=== PATIENT | female | born 1965 | race Caucasian/White ===

== ENCOUNTER → 2017-05-06 | Outpatient (CLI) | payer BC ==
[2017-05-06 08:07] LABS: ALT 38 U/L (9-52); AST 21 U/L (14-36); Alkaline Phosphatase 78 U/L (38-126); Anion Gap 10 mmol/L; Blood Urea Nitrogen 14 mg/dL (7-17); Calcium 9.3 mg/dL (8.4-10.2); Carbon Dioxide 25 mmol/L (22-30); Chloride 108 mmol/L (98-107); Cholesterol 242 mg/dL (<200); Glucose 81 mg/dL (74-99); HDL Cholesterol 63 mg/dL (40-60); Non-African American GFR(MDRD) >60 (>60 ml/min/1.73 sqM); Potassium 4.4 mmol/L (3.5-5.1); Sodium 143 mmol/L (137-145); Total Bilirubin 0.4 mg/dL (0.2-1.3); Total Protein 6.7 g/dL (6.3-8.2); Triglycerides 96 mg/dL (<150)
[2017-05-06 08:22] LABS: Basophils % (A) 0 %; CH 30.8; CHCM 33.6; Eosinophils # (A) 0.1 k/uL (0-0.7); Eosinophils % (A) 2 %; HCT 41.9 % (34.0-46.0); HDW 2.45; HGB 14.1 gm/dL (11.4-16.0); Luc % (Auto) 2; Lymphocytes # (A) 2.4 k/uL (1.0-4.8); Lymphocytes % (A) 38 %; MCH 31.1 pg (25.0-35.0); MCHC 33.7 g/dL (31.0-37.0); MCV 92.1 fL (80.0-100.0); Mean Platelet Volume 7.9; Monocytes # (A) 0.4 k/uL (0-1.0); Monocytes % (A) 6 %; Neutrophils # (A) 3.3 k/uL (1.3-7.7); Neutrophils % (A) 52 %; RBC 4.55 m/uL (3.80-5.40); RDW 13.5 % (11.5-15.5); WBC 6.3 k/uL (3.8-10.6); WBC (Perox) 6.24
== END | disposition home or self-care (01) ==
LOC: LABWHC1 07:05
PROVIDERS: ATTEND Physician Assistant
DX: E03.9 Hypothyroidism, unspecified (principal); R53.83 Other fatigue; E78.2 Mixed hyperlipidemia; Z01.419 Encounter for gynecological examination (general) (routine) without abnormal findings
CPT/HCPCS: 36415; 80053; 80061; 82306; 84439; 84443; 85025

== ENCOUNTER → 2017-05-17 | Outpatient (CLI) | payer BC ==
--- NOTE | 2017-05-20 13:33 | MM ---
Reason for exam: screening (asymptomatic). Last mammogram was performed 1 year and 1 month ago. History: Patient is postmenopausal. Family history of breast cancer in aunt at age 40, breast cancer in mother at age 60, and breast cancer in grandmother at age 50. Excisional biopsy of the right breast, 2002. Cyst aspiration of both breasts. Took hormonal contraceptives for 5 years beginning at age 19. Physical Findings: A clinical breast exam by your physician is recommended on an annual basis and results should be correlated with mammographic findings. MG 3D Screening Mammo W/Cad Bilateral CC and MLO view(s) were taken. Prior study comparison: April 13, 2016, bilateral MG 3d screening mammo w/cad. May 18, 2013, bilateral digital screening mammo w/CAD. The breast tissue is heterogeneously dense. This may lower the sensitivity of mammography. No suspicious findings. No significant changes when compared with prior studies. ASSESSMENT: Negative, BI-RAD 1 RECOMMENDATION: Routine screening mammogram of both breasts in 1 year.
== END | disposition home or self-care (01) ==
LOC: RADMAMWWP 06:57
PROVIDERS: ATTEND Family Medicine
DX: Z12.31 Encounter for screening mammogram for malignant neoplasm of breast (principal)
CPT/HCPCS: 77063; G0202

== ENCOUNTER → 2018-05-21 | Outpatient (CLI) | payer OTHER ==
--- NOTE | 2018-05-27 16:43 | MM ---
Reason for exam: screening (asymptomatic). Last mammogram was performed 1 year ago. History: Patient is postmenopausal. Family history of breast cancer in aunt at age 40, breast cancer in mother at age 60, and breast cancer in maternal grandmother at age 50. Excisional biopsy of the right breast, 2002. Cyst aspiration of both breasts. Took hormonal contraceptives for 5 years beginning at age 19. MG 3D Screening Mammo W/Cad Bilateral CC and MLO view(s) were taken. Prior study comparison: May 17, 2017, bilateral MG 3d screening mammo w/cad. April 13, 2016, bilateral MG 3d screening mammo w/cad. May 18, 2013, bilateral digital screening mammo w/CAD. The breast tissue is heterogeneously dense. This may lower the sensitivity of mammography. No suspicious abnormality. Post excisional biopsy changes on the right breast. No significant new finding from prior exam. ASSESSMENT: Benign, BI-RAD 2 RECOMMENDATION: Routine screening mammogram of both breasts in 1 year.
== END | disposition home or self-care (01) ==
LOC: RADMAMWWP 16:53
PROVIDERS: ATTEND Family Medicine
DX: Z12.31 Encounter for screening mammogram for malignant neoplasm of breast (principal)
CPT/HCPCS: 77063; 77067

== ENCOUNTER → 2019-04-24 | Outpatient (CLI) | payer OTHER ==
[2019-04-24 07:20] LABS: HCT 39.9 % (34.0-46.0); HGB 13.1 gm/dL (11.4-16.0); MCH 29.4 pg (25.0-35.0); MCHC 32.9 g/dL (31.0-37.0); MCV 89.3 fL (80.0-100.0); Mean Platelet Volume 8.2; Platelet Count 226 k/uL (150-450); RBC 4.47 m/uL (3.80-5.40); RDW 13.9 % (11.5-15.5); WBC 5.8 k/uL (3.8-10.6)
[2019-04-24 13:44] LABS: ACTH 23.1 pg/mL (0.00-45.99)
== END | disposition home or self-care (01) ==
LOC: LABWHC1 06:59
PROVIDERS: ATTEND Internal Medicine Endocrinology, Diabetes & Metabolism
DX: E03.8 Other specified hypothyroidism (principal); R53.83 Other fatigue
CPT/HCPCS: 36415; 82024; 82533; 82607; 84146; 84443; 85027

== ENCOUNTER → 2019-07-30 | Outpatient (CLI) | payer OTHER ==
[2019-07-30 09:28] LABS: Basophils % (A) 0 %; Eosinophils # (A) 0.1 k/uL (0-0.7); Eosinophils % (A) 1 %; HCT 42.2 % (34.0-46.0); Lymphocytes # (A) 2.1 k/uL (1.0-4.8); Lymphocytes % (A) 30 %; MCH 29.9 pg (25.0-35.0); MCHC 33.1 g/dL (31.0-37.0); MCV 90.3 fL (80.0-100.0); Mean Platelet Volume 6.7; Monocytes # (A) 0.4 k/uL (0-1.0); Monocytes % (A) 5 %; Neutrophils # (A) 4.5 k/uL (1.3-7.7); Neutrophils % (A) 63 %; Platelet Count 249 k/uL (150-450); RBC 4.67 m/uL (3.80-5.40); RDW 12.7 % (11.5-15.5); WBC 7.2 k/uL (3.8-10.6)
[2019-07-30 10:40] LABS: Erythrocyte Sedimentation Rate 7 mm/hr (0-20)
[2019-07-30 16:10] LABS: Rheumatoid Factor 6 IU/mL (0-15)
[2019-07-30 16:19] LABS: Albumin 4.5 g/dL (3.80-4.90); Albumin/Globulin Ratio 2.25 (1.60-3.17); Anion Gap 8.5 mmol/L (4.00-12.00); BUN/Creat Ratio 14.29 Ratio (12.00-20.00); C Reactive Protein 0.5 mg/dL (0.0-0.8); Calcium 9.6 mg/dL (8.7-10.3); Carbon Dioxide 26.5 mmol/L (21.6-31.8); Chol/HDL Ratio 4.75; Potassium 4.1 mmol/L (3.5-5.5); Total Bilirubin 0.5 mg/dL (0.3-1.2); Total Protein 6.5 g/dL (6.2-8.2)
[2019-07-30 16:45] LABS: Hepatitis B Surface Antigen Non-Reactive (Non-Reactive); Hepatitis C IgG Antibody Non-Reactive (Non-Reactive)
[2019-07-30 16:50] LABS: Cyclic Citrull Pep IgG Unit <0.5 U/mL; Cyclic Citrullinated Pep IgG NEGATIVE (NEGATIVE)
[2019-07-30 17:34] LABS: Hemoglobin A1C 5.7 % (4.0-6.0)
[2019-07-30 18:00] LABS: HIV 1 AB Non-Reactive (Non-Reactive); HIV 2 AB Non-Reactive (Non-Reactive); HIV AB P24 Non-Reactive (Non-Reactive); HIV P24 AG Non-Reactive (Non-Reactive)
== END | disposition home or self-care (01) ==
LOC: LABWHC1 08:45
PROVIDERS: ATTEND Family Medicine
DX: R20.2 Paresthesia of skin (principal)
CPT/HCPCS: 36415; 80053; 80061; 83036; 85025; 85652; 86038; 86140; 86200; 86431; 86780; 86803; 87340; 87390

== ENCOUNTER → 2019-09-08 | Outpatient (CLI) | payer OTHER ==
--- NOTE | 2019-09-08 22:34 | US ---
EXAMINATION TYPE: US carotid duplex BILAT DATE OF EXAM: 09/08/2019 COMPARISON: NONE CLINICAL HISTORY: I10 hypertension E78.5 KmtmixiganeocwH10.2. Facial numbness EXAM MEASUREMENTS: RIGHT: Peak Systolic Velocity (PSV) cm/sec ----- Right CCA: 76.5 ----- Right ICA: 105.6 ----- Right ECA: 97.2 ICA/CCA ratio: 1.4 RIGHT: End Diastole cm/sec ----- Right CCA: 23.7 ----- Right ICA: 51.2 ----- Right ECA: 19.7 LEFT: Peak Systolic Velocity (PSV) cm/sec ----- Left CCA: 74.3 ----- Left ICA: 97.4 ----- Left ECA: 121.7 ICA/CCA ratio: 1.3 LEFT: End Diastole cm/sec ----- Left CCA: 27.0 ----- Left ICA: 44.6 ----- Left ECA: 24.2 VERTEBRALS (direction of flow): Right Vertebral: Antegrade Left Vertebral: Antegrade Rhythm: Normal Grayscale images show no significant focal plaque at carotid bulb level bilaterally. IMPRESSION: No hemodynamically significant stenosis is seen in either internal carotid artery. Criteria for Assigning % of Stenosis / Diameter reduction (Estimation based on the indirect measurements of the internal carotid artery velocities (ICA PSV). 1. Normal (no stenosis)=ICA PSV < 125 cm/s: ratio < 2.0: ICA EDV<40 cm/s. 2. Less than 50% stenosis=ICA PSV < 125 cm/s: ratio < 2.0: ICA EDV<40 cm/s. 3. 50 to 69% stenosis=ICA PSV of 125 to 230 cm/s: ration 2.0 ? 4.0: ICA EDV 40-100 cm/s. 4. Greater than 70% stenosis to near occlusion= ICA PSV > 230 cm/s: ratio > 4.0: ICA EDV > 100 cm/s. 5. Near occlusion= ICA PSV velocities may be low or undetectable: variable ratio and ICA EDV. 6. Total occlusion=unable to detect flow.
== END ==
LOC: RADUSWWP 16:01
PROVIDERS: ATTEND Family Medicine
DX: I10 Essential (primary) hypertension (principal); E78.5 Hyperlipidemia, unspecified; R20.2 Paresthesia of skin
CPT/HCPCS: 93880

== ENCOUNTER → 2019-10-28 | Outpatient (CLI) | payer OTHER ==
[2019-10-28 16:15] LABS: Chol/HDL Ratio 3.03
== END ==
LOC: LABWHC1 07:11
PROVIDERS: ATTEND Family Medicine
DX: E78.2 Mixed hyperlipidemia (principal); E03.8 Other specified hypothyroidism
CPT/HCPCS: 36415; 80061; 84443

== ENCOUNTER 2020-04-12 19:56 | Emergency (ER) | payer OTHER ==
[2020-04-12] MEDS ORDERED: methylPREDNISolone SOD SUCCI 125 MG/2 ML VIAL IV STA (20:11)
[2020-04-12] MEDS ORDERED: FAMOTIDINE 20 MG/2 ML VIAL IV STA (20:11)
[2020-04-12] MEDS ORDERED: diphenhydrAMINE 50 MG/ML 1 ML VIAL IVP STA (20:11)
--- NOTE | 2020-04-12 20:14 | ED ---
General Adult HPI - General Chief complaint: Allergic Reaction Stated complaint: Multiple wasp stings/ swelling Time Seen by Provider: 04/12/20 20:08 Source: patient, RN notes reviewed Mode of arrival: ambulatory Limitations: no limitations - History of Present Illness Initial comments: 54-year-old female with a past medical history hyperlipidemia, hypertension, thyroid disorder presents to the emergency department for a chief complaint of wasp sting. Patient was stung twice in the face by a wasp. Patient states one was by her eyebrow and one was by her cheek. Patient states her face is numb. However she denies any sling of the lips tongue or throat. Denies any shortness of breath or chest pain. Patient has never had an ALLERGIC reaction from a bee sting before. This happened about one hour prior to arrival. She did take one 25 mg Benadryl prior to arrival as well. - Related Data Previous Rx's Medication Instructions Recorded predniSONE 50 mg PO DAILY #3 tablet 04/12/20 Allergies Allergy/AdvReac Type Severity Reaction Status Date / Time Sulfa (Sulfonamide Allergy Rash/Hives Verified 04/12/20 20:03 Antibiotics) Review of Systems ROS Statement: Those systems with pertinent positive or pertinent negative responses have been documented in the HPI. ROS Other: All systems not noted in ROS Statement are negative. Past Medical History Past Medical History: Hyperlipidemia, Hypertension, Thyroid Disorder History of Any Multi-Drug Resistant Organisms: None Reported Past Surgical History: Cholecystectomy, Tubal Ligation, Uterine Ablation Past Psychological History: No Psychological Hx Reported Smoking Status: Never smoker Past Alcohol Use History: Rare Past Drug Use History: None Reported General Exam Limitations: no limitations General appearance: alert, in no apparent distress Head exam: Present: atraumatic, normocephalic, normal inspection Eye exam: Present: normal appearance, PERRL, EOMI. Absent: scleral icterus, conjunctival injection, periorbital swelling ENT exam: Present: normal exam, normal oropharynx (No swelling of the lips tongue or throat), mucous membranes moist, TM's normal bilaterally, normal external ear exam Neck exam: Present: normal inspection, full ROM. Absent: tenderness, meningismu s, lymphadenopathy Respiratory exam: Present: normal lung sounds bilaterally. Absent: respiratory distress, wheezes, rales, rhonchi, stridor Cardiovascular Exam: Present: regular rate, normal rhythm, normal heart sounds. Absent: systolic murmur, diastolic murmur, rubs, gallop, clicks GI/Abdominal exam: Present: soft, normal bowel sounds. Absent: distended, tenderness, guarding, rebound, rigid Neurological exam: Present: alert Skin exam: Present: erythema Course Vital Signs 04/12/20 04/12/20 19:59 20:42 Temperature 98.1 F Pulse Rate 88 Respiratory 16 20 Rate Blood Pressure 139/75 O2 Sat by Pulse 100 Oximetry Medical Decision Making - Medical Decision Making Patient was given IV medications. She is much better. No slurring of the lips tongue or throat. No drooling hoarseness or stridor. Patient requesting discharge. Will be discharged home with a few days of steroids. It discussed return parameters in depth with patient. I discussed this case with attending Dr. Gaitan who agrees with this assessment and treatment plan. Disposition Clinical Impression: Wasp sting Disposition: HOME SELF-CARE Condition: Good Instructions (If sedation given, give patient instructions): Insect Bite or Sting (ED) Additional Instructions: Take Benadryl [id number] as needed. Take steroid as directed. Follow-up with primary care in 1-2 days. Give any worsening symptoms return here to the emergency room. Prescriptions: predniSONE 50 mg PO DAILY #3 tablet Is patient prescribed a controlled substance at d/c from ED?: No Referrals: Richie Fuentes MD [Primary Care Provider] - 1-2 days Time of Disposition: 21:23
[2020-04-12 21:58] VITALS: BP 118/78; PULSE 64; RESP 15; TEMP 97.1
== END 2020-04-12 21:56 | disposition home or self-care (01) ==
LOC: EC 19:56
DX: T63.441A Toxic effect of venom of bees, accidental (unintentional), initial encounter (principal); Z88.2 Allergy status to sulfonamides
CPT/HCPCS: 99283; 96374; 96375 ×2; J1200; J2930

== ENCOUNTER → 2020-05-05 | Outpatient (CLI) | payer OTHER | END | disposition home or self-care (01) | LOC: LABWHC1 07:49 | PROVIDERS: ATTEND Internal Medicine Endocrinology, Diabetes & Metabolism | DX: E03.8 Other specified hypothyroidism (principal) | CPT/HCPCS: 36415; 84443 ==

== ENCOUNTER → 2020-11-10 | Outpatient (CLI) | payer OTHER ==
--- NOTE | 2020-11-11 14:23 | MM ---
Reason for exam: screening (asymptomatic). Last mammogram was performed 2 years and 6 months ago. History: Patient is postmenopausal. Family history of breast cancer in aunt at age 40, breast cancer in mother at age 60, and breast cancer in maternal grandmother at age 50. Excisional biopsy of the right breast, 2002. Cyst aspiration of both breasts. Took hormonal contraceptives for 5 years beginning at age 19. Physical Findings: A clinical breast exam by your physician is recommended on an annual basis and results should be correlated with mammographic findings. MG 3D Screening Mammo W/Cad Bilateral CC and MLO view(s) were taken. Prior study comparison: May 21, 2018, bilateral MG 3d screening mammo w/cad. May 17, 2017, bilateral MG 3d screening mammo w/cad. The breast tissue is heterogeneously dense. This may lower the sensitivity of mammography. Stable benign calcifications. There is no discrete abnormality. No significant changes when compared with prior studies. ASSESSMENT: Benign, BI-RAD 2 RECOMMENDATION: Routine screening mammogram of both breasts in 1 year.
== END | disposition home or self-care (01) ==
LOC: RADMAMWWP 07:18
PROVIDERS: ATTEND Family Medicine
DX: Z12.31 Encounter for screening mammogram for malignant neoplasm of breast (principal)
CPT/HCPCS: 77063; 77067

== ENCOUNTER → 2020-11-10 | Outpatient (CLI) | payer OTHER | END | disposition home or self-care (01) | LOC: LABWHC1 07:48 | PROVIDERS: ATTEND Internal Medicine Endocrinology, Diabetes & Metabolism | DX: E03.8 Other specified hypothyroidism (principal) | CPT/HCPCS: 36415; 84443 ==

== ENCOUNTER → 2021-05-29 | Outpatient (CLI) | payer OTHER | END | disposition home or self-care (01) | LOC: LABWHC1 07:22 | PROVIDERS: ATTEND Internal Medicine Endocrinology, Diabetes & Metabolism | DX: E03.8 Other specified hypothyroidism (principal) | CPT/HCPCS: 36415; 84443 ==

== ENCOUNTER → 2021-06-06 | Outpatient (CLI) | payer OTHER ==
--- NOTE | 2021-06-06 07:51 | XR ---
EXAMINATION TYPE: XR hand complete LT DATE OF EXAM: 06/06/2021 COMPARISON: NONE HISTORY: Pain TECHNIQUE: Three views are submitted. FINDINGS: The osseous structures are intact. Diffuse osteopenia with narrowing of the DIP joint of all digits. IMPRESSION: 1. Diffuse osteopenia with mild arthropathy.
[2021-06-06 11:16] LABS: Basophils # (A) 0.04 X 10*3/uL (0.00-0.10); Basophils % (A) 0.6 %; Eosinophils # (A) 0.12 X 10*3/uL (0.04-0.35); Eosinophils % (A) 1.8 %; HCT 40.5 % (37.2-46.3); HGB 13.3 g/dL (12.0-15.0); Lymphocytes # (A) 2.16 X 10*3/uL (0.90-5.00); MCH 30.6 pg (27.0-32.0); MCHC 32.8 g/dL (32.0-37.0); MCV 93.3 fL (80.0-97.0); Mean Platelet Volume 11.1 fL (9.5-12.2); Monocytes # (A) 0.42 X 10*3/uL (0.20-1.00); Monocytes % (A) 6.4 %; Neutrophils # (A) 3.78 X 10*3/uL (1.80-7.70); Neutrophils % (A) 57.9 %; Platelet Count 256 X 10*3/uL (140-440); RBC 4.34 X 10*6/uL (4.10-5.20); RDW 12.4 % (11.5-14.5); WBC 6.54 X 10*3/uL (4.50-10.00)
[2021-06-06 20:36] LABS: African American GFR (CKD) 94.9 (60.0-200.0); Albumin 4.3 g/dL (3.80-4.90); Albumin/Globulin Ratio 2.05 (1.60-3.17); Anion Gap 13.3 mmol/L (4.00-12.00); BUN/Creat Ratio 13.75 Ratio (12.00-20.00); Calcium 9.2 mg/dL (8.7-10.3); Carbon Dioxide 22.7 mmol/L (21.6-31.8); Chol/HDL Ratio 3.02; Globulin 2.1 g/dL (1.6-3.3); LDL Cholesterol,Calculated 88.2 mg/dL (0.0-131.0); Non-African American GFR(CKD) 81.8 (60.0-200.0); Total Bilirubin 0.3 mg/dL (0.2-1.2); Total Protein 6.4 g/dL (6.2-8.2); VLDL Calculation 22.8 mg/dL (5.00-40.00)
== END | disposition home or self-care (01) ==
LOC: LABWHC1 07:06
PROVIDERS: ATTEND Family Medicine
DX: E78.00 Pure hypercholesterolemia, unspecified (principal); E55.9 Vitamin D deficiency, unspecified; E03.9 Hypothyroidism, unspecified; I10 Essential (primary) hypertension; M79.89 Other specified soft tissue disorders; R22.32 Localized swelling, mass and lump, left upper limb; M85.80 Other specified disorders of bone density and structure, unspecified site; Z68.29 Body mass index [BMI] 29.0-29.9, adult
CPT/HCPCS: 36415; 80053; 80061; 82306; 84439; 84443; 85025; 86803

== ENCOUNTER → 2021-06-28 | Outpatient (CLI) | payer OTHER ==
--- NOTE | 2021-06-28 11:33 | BD ---
EXAMINATION TYPE: Axial Bone Density DATE OF EXAM: 06/28/2021 COMPARISON: NONE CLINICAL HISTORY: Height: 5 FT 5 1/2 IN Weight: 182 FRAX RISK QUESTIONS: Alcohol (3 or more units per day): NO Family History (Parent hip fracture): NO Glucocorticoids (More than 3mos): NO (Ex: prednisone, prednisolone, methylprednisolone, dexamethasone, and hydrocortisone). History of Fracture in Adulthood: NO Secondary Osteoporosis: 1. Type 1 Diabetes: NO 2. Hyperthyroidism: NO 3. Menopause before 45: YES 4. Malnutrition: NO 5. Chronic liver disease: NO Rheumatoid Arthritis: NO Current Tobacco Use: NO RISK FACTORS HISTORY OF: Surgery to Spine/Hip(right/left)/Wrist (right/left): NO Family History of Osteoporosis: NO Active: NO Diet low in dairy products/other sources of calcium: NO Postmenopausal woman: BEFORE AGE 45 Take estrogen and/or progesterone medications: NO Lost more than 2 inches in height since high school: NO MEDICATIONS: Thyroid Medications: YES Which medication: SYNTHROID How Long: APPROX 30 YEARS Additional Medications: SYNTHROID, LISINOPRIL, ATORVASTATAN Additional History: EXAM MEASUREMENTS: Bone mineral densitometry was performed using the [employer] System. Bone mineral density as measured about the Lumbar spine is: ----- L1-L4(G/cm2): 1.245 T Score Values are as follows: ----- L2: 0.3 ----- L3: 0.8 ----- L4: 0.6 ----- L1-L4: 0.5 Bone mineral density has: DECREASED -10.1 % since study of: 2012 Bone mineral density about the R hip (g/cm2): 0.776 Bone mineral density about the L hip (g/cm2): 0.830 T Score values are as follows: -----R Neck: -1.9 -----L Neck: -1.5 -----R Total: -1.6 -----L Total: -1.3 Bone mineral density has: DECREASED -3.6 % since study of: 2012 IMPRESSION: Osteopenia (T Score between -2.5 and -1). There is slightly increased risk of fracture and the patient may be considered for treatment. Re-Screen 2-5 years. NOTE: T-SCORE=SD OF THE YOUNG ADULT MEAN.
== END | disposition home or self-care (01) ==
LOC: RADBDWWP 09:52
PROVIDERS: ATTEND Family Medicine
DX: M85.89 Other specified disorders of bone density and structure, multiple sites (principal)
CPT/HCPCS: 77080

== ENCOUNTER → 2021-06-29 | Outpatient (CLI) | payer OTHER ==
--- NOTE | 2021-06-30 07:08 | US ---
EXAMINATION TYPE: US extremity nonvasc mass LT DATE OF EXAM: 06/29/2021 COMPARISON: NONE CLINICAL HISTORY: R22.42 Localized swelling, mass and lump, left low. palpable area under left buttoc ks for years, no pain, thinks it might be getting smaller 2.0 x 2.3 x 1.6cm slighty hyperechoic lesion that is most likely a lipoma, no vascularity seen IMPRESSION: Nonspecific 2.3 cm mass over the area of palpable abnormality possibly representing a li iker. Correlate with MRI
== END | disposition home or self-care (01) ==
LOC: RADUSWWP 16:11
PROVIDERS: ATTEND Family Medicine
DX: R22.42 Localized swelling, mass and lump, left lower limb (principal)

== ENCOUNTER → 2021-10-02 | Outpatient (CLI) | payer OTHER ==
[2021-10-02 22:15] LABS: ALT 35 U/L (8-44); AST 22 U/L (13-35); African American GFR (CKD) 111.5 (60.0-200.0); Albumin 4.6 g/dL (3.8-4.9); Albumin/Globulin Ratio 2.09 (1.60-3.17); Alkaline Phosphatase 86 U/L (41-126); Blood Urea Nitrogen 14.7 mg/dL (9.0-27.0); Calcium 9.6 mg/dL (8.7-10.3); Carbon Dioxide 22.3 mmol/L (20.0-27.5); Chloride 104 mmol/L (96-109); Globulin 2.2 g/dL (1.6-3.3); Glucose 93 mg/dL (70-110); Non-African American GFR(CKD) 96.2 (60.0-200.0); Potassium 4.5 mmol/L (3.5-5.5); Sodium 141 mmol/L (135-145); Total Bilirubin <0.20 mg/dL (0.30-1.20); Total Protein 6.8 g/dL (6.2-8.2)
== END | disposition home or self-care (01) ==
LOC: LABWHC1 13:14
PROVIDERS: ATTEND Nurse Practitioner Family
DX: R79.9 Abnormal finding of blood chemistry, unspecified (principal); M85.9 Disorder of bone density and structure, unspecified
CPT/HCPCS: 36415; 80053

== ENCOUNTER → 2022-03-20 | Outpatient (CLI) | payer OTHER | END | disposition home or self-care (01) | LOC: LABWHC1 07:26 | PROVIDERS: ATTEND Internal Medicine Endocrinology, Diabetes & Metabolism | DX: E03.8 Other specified hypothyroidism (principal) | CPT/HCPCS: 36415; 84443 ==

== ENCOUNTER → 2022-09-17 | Outpatient (CLI) | payer OTHER ==
[2022-09-17 10:52] LABS: Basophils # (A) 0.03 X 10*3/uL (0.00-0.10); Basophils % (A) 0.4 %; Eosinophils # (A) 0.14 X 10*3/uL (0.04-0.35); HCT 41.5 % (37.2-46.3); HGB 13.9 g/dL (12.0-15.0); Immature Grans, Automated 0.1 %; Lymphocytes # (A) 2.14 X 10*3/uL (0.90-5.00); Lymphocytes % (A) 30.9 %; MCH 30.2 pg (27.0-32.0); MCHC 33.5 g/dL (32.0-37.0); Mean Platelet Volume 10.6 fL (9.5-12.2); Monocytes # (A) 0.47 X 10*3/uL (0.20-1.00); Monocytes % (A) 6.8 %; NRBC Per 100 WBC 0 /100 WBCS (0.0-0.0); Neutrophils # (A) 4.14 X 10*3/uL (1.80-7.70); Neutrophils % (A) 59.8 %; Platelet Count 246 X 10*3/uL (140-440); RBC 4.61 X 10*6/uL (4.10-5.20); RDW 12.4 % (11.5-14.5); WBC 6.93 X 10*3/uL (4.50-10.00)
[2022-09-17 11:21] LABS: ALT 32 U/L (8-44); AST 19 U/L (13-35); African American GFR (CKD) 94.2 (60.0-200.0); Albumin 4.5 g/dL (3.8-4.9); Albumin/Globulin Ratio 1.88 (1.60-3.17); Alkaline Phosphatase 83 U/L (41-126); Blood Urea Nitrogen 11.6 mg/dL (9.0-27.0); Calcium 9.6 mg/dL (8.7-10.3); Carbon Dioxide 24.9 mmol/L (20.0-27.5); Chloride 104 mmol/L (96-109); Chol/HDL Ratio 3.67 Ratio; Globulin 2.4 g/dL (1.6-3.3); Glucose 112 mg/dL (70-110); LDL Cholesterol,Calculated 110.6 mg/dL (0.0-131.0); Non-African American GFR(CKD) 81.3 (60.0-200.0); Potassium 4.3 mmol/L (3.5-5.5); Sodium 141 mmol/L (135-145); Total Protein 6.9 g/dL (6.2-8.2)
== END | disposition home or self-care (01) ==
LOC: LABWHC1 07:13
PROVIDERS: ATTEND Internal Medicine Endocrinology, Diabetes & Metabolism
DX: I10 Essential (primary) hypertension (principal); E78.00 Pure hypercholesterolemia, unspecified; E66.09 Other obesity due to excess calories; E03.8 Other specified hypothyroidism; Z68.31 Body mass index [BMI] 31.0-31.9, adult
CPT/HCPCS: 36415; 80053; 80061; 84439; 84443; 85025

== ENCOUNTER → 2022-10-18 | Outpatient (CLI) | payer OTHER ==
--- NOTE | 2022-10-18 18:53 | MM ---
Reason for Exam: Screening (asymptomatic). Last mammogram was performed 2 year(s) and 0 month(s) ago. Patient History: Menarche at age 16. First Full-Term at age 25. Postmenopausal. Hormonal Contraceptives for 5 years from age 19 until age 24. Bilateral Cyst Aspiration. 2002, Excisional Biopsy on the Right side. Maternal grandmother had breast cancer, age 50. Maternal aunt had breast cancer, age 40. Mother had breast cancer, age 60. Risk Values: Nancy 5 year model risk: 2.8%. NCI Lifetime model risk: 15.6%. Prior Study Comparison: 05/17/2017 Bilateral Screening Mammogram, [facility]. 05/21/2018 Bilateral Screening Mammogram, [facility]. 11/10/2020 Bilateral Screening Mammogram, [facility]. Tissue Density: The breast tissue is heterogeneously dense. This may lower the sensitivity of mammography. Findings: Analyzed By CAD. Increasing grouped microcalcifications upper outer quadrant left breast posterior depth. 9 mm circumscribed mass may have been present in 2018 but much smaller approximately 8:00 position periareolar left breast. This may represent a cyst but further ultrasound evaluation is recommended. Additional couple areas of asymmetric density outer left cc view middle depth and centrally posteriorly left MLO view may represent superimposition shadow but further evaluation is recommended. No significant change seen on the right. Overall Assessment: Incomplete: need additional imaging evaluation, BI-RAD 0 Management: Special View Mammogram of the left breast. Diagnostic Breast Ultrasound of the left breast. 1. Additional views including spot 3-D CC (middle depth asymmetry), spot 3-D MLO (central posterior depth asymmetry), and 3-D ML views. 2. Also, mag CC and mag ML views for the posterior upper-outer quadrant microcalcifications. 3. Whole left breast ultrasound. Particular attention for an 8:00 periareolar 9 mm mass/cyst. [facility] will attempt to contact patient to return for supplemental views and ultrasound if indicated. Electronically signed and approved by: Luli Reyes M.D. Radiologist
== END | disposition home or self-care (01) ==
LOC: RADMAMWWP 06:52
PROVIDERS: ATTEND Family Medicine
DX: Z12.31 Encounter for screening mammogram for malignant neoplasm of breast (principal); Z78.0 Asymptomatic menopausal state; Z80.3 Family history of malignant neoplasm of breast; Z98.890 Other specified postprocedural states
CPT/HCPCS: 77067

== ENCOUNTER → 2022-10-25 | Outpatient (CLI) | payer OTHER ==
--- NOTE | 2022-10-25 15:33 | MM ---
Reason for Exam: Additional evaluation requested from abnormal screening. Last screening mammogram was performed less than 1 month ago. Patient History: Menarche at age 16. First Full-Term at age 25. Postmenopausal. Patient has history of breast feeding. Hormonal Contraceptives for 5 years from age 19 until age 24. Bilateral Cyst Aspiration. 2002, Excisional Biopsy on the Right side. Maternal grandmother had breast cancer, age 50. Maternal aunt had breast cancer, age 40. Mother had breast cancer, age 60. Risk Values: Nancy 5 year model risk: 2.8%. NCI Lifetime model risk: 15.6%. Prior Study Comparison: 04/13/2016 Bilateral Screening Mammogram, [facility]. 05/17/2017 Bilateral Screening Mammogram, [facility]. 05/21/2018 Bilateral Screening Mammogram, [facility]. 11/10/2020 Bilateral Screening Mammogram, [facility]. 10/18/2022 Bilateral MG screening mammo w CAD, [facility]. Tissue Density: Left: The breast tissue is heterogeneously dense. This may lower the sensitivity of mammography. Findings: Analyzed By CAD. Persistent 9 mm circumscribed isodense nodularity anterior lower quadrant for which ultrasound is recommended. The middle depth nodularity outer aspect on the CC view does not persist. Suspicious finding heterogeneous calcifications persist upper outer quadrant at a posterior depth. Tissue sampling recommended. Overall Assessment: Incomplete: need additional imaging evaluation, BI-RAD 0 Management: Diagnostic Breast Ultrasound of the left breast. Electronically signed and approved by: Luli Reyes M.D. Radiologist
--- NOTE | 2022-10-25 15:36 | USB ---
Patient History: Menarche at age 16. First Full-Term at age 25. Postmenopausal. Patient has history of breast feeding. Hormonal Contraceptives for 5 years from age 19 until age 24. Bilateral Cyst Aspiration. 2002, Excisional Biopsy on the Right side. Maternal grandmother had breast cancer, age 50. Maternal aunt had breast cancer, age 40. Mother had breast cancer, age 60. Risk Values: Nancy 5 year model risk: 2.8%. NCI Lifetime model risk: 15.6%. Prior Study Comparison: 05/21/2018 Bilateral Screening Mammogram, [facility]. 11/10/2020 Bilateral Screening Mammogram, [facility]. 10/18/2022 Bilateral MG screening mammo w CAD, [facility]. Findings: The whole breast of the left breast, the axilla of the left breast and the retroareolar of the left breast were scanned. Left 900 2CFN 9 x 6 x 9mm oval cyst.A complete US of all four quadrants of the breast , axilla, and retro-areolar region were reviewed. At the 9:00 position, 2 cm from the nipple, there is a benign 9 mm cyst corresponding to the mammographic nodule. The At the 4:00 position, 5 cm from the nipple, there is a somewhat vertically oriented anechoic area measuring 4 x 3 x 3 mm, likely a benign cyst. Short-term follow-up given the apparent vertical orientation. No other solid or cystic lesion or axillary lymphadenopathy is seen. Overall Assessment: Suspicious, BI-RAD 4 Management: Stereotactic Core Biopsy of the left breast. For suspicious microcalcifications posterior upper quadrant. Results were given to the patient verbally at the time of exam. Electronically signed and approved by: Luli Reyes M.D. Radiologist
== END | disposition home or self-care (01) ==
LOC: RADMAMWWP 13:32
PROVIDERS: ATTEND Family Medicine
DX: R92.8 Other abnormal and inconclusive findings on diagnostic imaging of breast (principal); Z78.0 Asymptomatic menopausal state; Z80.3 Family history of malignant neoplasm of breast; Z98.890 Other specified postprocedural states
CPT/HCPCS: 77065

== ENCOUNTER 2022-12-31 06:14 | Day surgery (SDC) | payer OTHER ==
[~2022-12-31 06:14] MED LIST: ACETAMINOPHEN TAB 500 MG TAB PO PRN; HEPARIN SODIUM,PORCINE/PF 5,000 UNIT/0.5 ML SYRINGE SQ PRN; Pre Op ABX Message 1 EACH MISC MISCELLANE ONE
[2022-12-31] MEDS ORDERED: ONDANSETRON 4 MG/2 ML VIAL IVP ONE ×2 (06:57→12:37)
[2022-12-31] MEDS ORDERED: LACTATED RINGERS 1,000 ML IV SCH (06:57)
[2022-12-31] MEDS ORDERED: DEXAMETHASONE SOD PHOSPHATE 4 MG/ML 1 ML VIAL IV ONE (06:57)
[2022-12-31] MEDS ORDERED: LIDOCAINE 1% (10MG/ML) FOR IV START INTRADERMA PRN (06:57)
[2022-12-31] MEDS ORDERED: SCOPOLAMINE 1 MG/72 HR PATCH TRANSDERM ONE (06:57)
[2022-12-31] MEDS ORDERED: ALPRAZolam 0.5 MG TAB PO PRN (07:00)
[2022-12-31] MEDS ORDERED: METOCLOPRAMIDE 5 MG/ML 2 ML VIAL IVP PRN (07:00)
[2022-12-31] MEDS ORDERED: ALPRAZolam 0.5 MG TAB PO ONE (07:14)
--- NOTE | 2022-12-31 07:48 | P.GSHP ---
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 Patient had a 12 x 8 mm area of density with calcifications that was targeted. Second area seen on ultrasound was biopsied and was benign. Patient has a strong family history of breast cancer in a mother, maternal aunt, maternal uncle, maternal grandmother. I spoke with oncology this morning. No actionable mutation identified on recent testing. Here for lumpectomy Past Medical History Past Medical History: Cancer, Hyperlipidemia, Hypertension, Thyroid Disorder Additional Past Medical History / Comment(s): breast ca History of Any Multi-Drug Resistant Organisms: None Reported Past Surgical History: Cholecystectomy, Tubal Ligation, Uterine Ablation Past Anesthesia/Blood Transfusion Reactions: No Reported Reaction Smoking Status: Never smoker - Past Family History Mother Family Medical History: Cancer Additional Family Medical History / Comment(s): breast Sister(s) Family Medical History: Deep Vein Thrombosis (DVT) Medications and Allergies Home Medications Medication Instructions Recorded Confirmed Type Atorvastatin [Lipitor] 10 mg PO DAILY 10/26/22 12/25/22 History Levothyroxine Sodium [Synthroid] 112 mcg PO DAILY 10/26/22 12/25/22 History lisinopriL [Zestril] 10 mg PO DAILY 10/26/22 12/25/22 History Allergies Allergy/AdvReac Type Severity Reaction Status Date / Time Sulfa (Sulfonamide Allergy Rash/Hives Verified 12/31/22 07:07 Antibiotics) Surgical - Exam Vital Signs Temp Pulse Resp BP Pulse Ox 97.5 F L 64 16 161/80 99 12/31/22 07:10 12/31/22 07:10 12/31/22 07:10 12/31/22 07:10 12/31/22 07:10 Physical exam: General: Well-developed, well-nourished HEENT: Normocephalic, sclerae nonicteric Right breast: No masses, no adenopathy Left breast: Recent biopsy site noted, no masses, no adenopathy Abdomen: Nontender, nondistended Extremities: No edema Neuro: Alert and oriented Assessment and Plan (1) Breast cancer, left Narrative/Plan: 57-year-old female with recent diagnosis of grade 3 stage I left breast cancer. We'll proceed with left breast wire localization lumpectomy with sentinel lymph node biopsy/injection. Risks of bleeding, infection, scarring, recurrence, numbness, seroma, nerve injury weakness, lymphedema, possible need for further surgery all reviewed. She understands and wishes to proceed. Current Visit: Yes Status: Acute Code(s): C50.912 - MALIGNANT NEOPLASM OF UNSPECIFIED SITE OF LEFT FEMALE BREAST SNOMED Code(s): 492091460
[2022-12-31] MEDS ORDERED: LIDOCAINE 1% INJ 10MG/ML (10 ML MDV) SQ ONE (07:50)
--- NOTE | 2022-12-31 08:53 | P.NAPBC ---
NAPBC Queries - NAPBC Queries Was patient's case review presented at [facility] tumor board? If no, comment.: Yes Was patient's pathology reviewed at [facility]? If no, comment.: Yes Was breast conservation surgery offered? If no, comment.: Yes Was sentinel node biopsy offered? If no, comment.: Yes Was diagnosis confirmed by percutaneous core biopsy? If no, comment.: Yes Is patient mastectomy patient?: No Was a preop referral to reconstructive surgeon offered?: Yes Clinical Stage: 1
[2022-12-31] MEDS ORDERED: SUCCINYLCHOLINE CHLORIDE 200 MG/10 ML VIAL IV ONE (08:55)
[2022-12-31] MEDS ORDERED: PHENYLEPHRINE-0.9% NACL SYG 1,000 MCG/10 ML SYRINGE ONE (08:55)
[2022-12-31] MEDS ORDERED: LIDOCAINE 2% INJ 20 MG/ML (2 ML VIAL) ONE (08:55)
[2022-12-31] MEDS ORDERED: fentaNYL (PF) 50 MCG/ML 2 ML AMP ONE (08:55)
[2022-12-31] MEDS ORDERED: SODIUM CHLORIDE 0.9% 100 ML BAG ONE (08:55)
[2022-12-31] MEDS ORDERED: MIDAZOLAM 2 MG/2 ML VIAL ONE (08:55)
[2022-12-31] MEDS ORDERED: PROPOFOL 10 MG/ML 20 ML VIAL IV ONE (08:55)
[2022-12-31] MEDS ORDERED: ceFAZolin 1,000 MG VIAL ONE (08:55)
[2022-12-31] MEDS ORDERED: BUPIVACAINE (PF) 0.25% 30 ML VIAL SQ ONE ×2 (09:31→10:34)
--- NOTE | 2022-12-31 10:25 | NM ---
EXAMINATION TYPE: NM sentinel node injection DATE OF EXAM: 12/31/2022 COMPARISON: NONE HISTORY: Left-sided breast cancer TECHNIQUE AND FINDINGS: The procedure of sentinel lymph node injection was explained to the patient. The benefits, alternatives, and risks were discussed. An informed consent was then obtained. Overlying skin is cleaned with sterile alcohol. Following this, 580 uCi Tc99m Tilmanocept was inject ed in the upper outer aspect of the left nipple intradermally. The patient tolerated the procedure well without any immediate complication. The patient was kept in the radiology department for short stay after the procedure and then taken to surgery for surgical p rocedure what is presumed intraoperative gamma probe will be used for sentinel lymph node detection. IMPRESSION: Left breast radiotracer injection for sentinel node localization as above.
[2022-12-31] MEDS ORDERED: ACETAMINOPHEN TAB 325 MG TAB PO PRN (10:40)
[2022-12-31] MEDS ORDERED: NALOXONE 0.4 MG/ML 1 ML VIAL IV PRN (10:40)
[2022-12-31] MEDS ORDERED: HYDROmorphone 1 MG/ML 1 ML SYRINGE IVP PRN (10:40)
[2022-12-31] MEDS ORDERED: HYDROcodone/APAP 5-325MG 1 EACH TAB PO PRN (10:40)
[2022-12-31] MEDS ORDERED: ACETAMINOPHEN IV (For NPO) 1,000 MG in EMPTY BAG 1 BAG IVPB ONE (10:40)
[2022-12-31 10:55] VITALS: TEMP 97
--- NOTE | 2022-12-31 10:58 | P.OP ---
Date of Procedure: 12/31/22 Procedure(s) Performed: PREOPERATIVE DIAGNOSIS: Left breast cancer POSTOPERATIVE DIAGNOSIS: Same PROCEDURE: Left Breast wire localization lumpectomy with sentinel lymph node biopsy SURGEON: Ruchi EBL: Minimal ANESTHESIA: General COMPLICATIONS: None OPERATIVE PROCEDURE: Patient was placed on the operating room table in the supine position. 2 mL of methylene blue was injected into the subareolar space. The breast was then massaged for 5 minutes. The breast was prepped and draped in usual sterile fashion. The left axilla was addressed at that time. The hot spot in the left axilla was identified. A small curvilinear incision was made using the scalpel. Dissection down through the subcutaneous tissues took place using electrocautery. Using the neoprobe I identified a total of 3 sentinel lymph nodes. 2 of these were blue in color. These had benign exam characteristics. These were all removed and sent to pathology for permanent sectioning. The third lymph node was fairly deep right upper cancer chest wall. Small oozing that was controlled using spot cautery and a clip. Surgicel pouter was also utilized. The surgical site was then inspected and no bleeding was seen. The subcutaneous tissues were closed using 3-0 Vicryl sutures. The skin was closed using 4-0 Monocryl sutures. The wire entrance site was then addressed. This was present at the 3:00 location. A curvilinear incision was made adjacent to the wire entrance site. I followed the wire down into the breast tissue. An adequate lumpectomy specimen then took place around the wire. Margins of 1.5-2 cm worth attempted to be achieved. Palpation of the specimen suggested that the anterior and superior margins were somewhat close. I took an additional margin anteriorly and superiorly and these margins were painted the appropriate color on the new margin side. The initial specimen was also painted the appropriate 6 colors. Clips were used to identify the lumpectomy cavity. The clip was confirmed to be within the lumpectomy specimen by radiology. The subcutaneous tissues were closed using 3-0 Vicryl sutures. The skin was closed using a running 4-0 Monocryl stitch. Skin glue was then applied. DISPOSITION: Stable to recovery room
[2022-12-31] MEDS: HYDROmorphone 0.5 MG/0.5 ML SYRINGE IVP PRN ×2 (11:13→11:37)
[2022-12-31] MEDS ORDERED: KETOROLAC 15 MG/ML 1 ML VIAL IVP SCH (12:00)
[2022-12-31 12:12] VITALS: RESP 16
[2022-12-31] MEDS ORDERED: ONDANSETRON 4 MG/2 ML VIAL ONE (12:34)
[2022-12-31 12:58] VITALS: BP 149/84; PULSE 71
== END 2022-12-31 12:45 | disposition home or self-care (01) ==
LOC: OR 06:14
PROVIDERS: ATTEND Surgery
DX: C50.912 Malignant neoplasm of unspecified site of left female breast (principal); E78.5 Hyperlipidemia, unspecified; I10 Essential (primary) hypertension; E07.9 Disorder of thyroid, unspecified; Z88.2 Allergy status to sulfonamides; Z79.899 Other long term (current) drug therapy; Z79.890 Hormone replacement therapy; Z80.3 Family history of malignant neoplasm of breast; Z90.49 Acquired absence of other specified parts of digestive tract
CPT/HCPCS: 38525; 76098; 19281; 38792; 19301; C1819; A9520; J2250; J0330; J1100; J2405; J0690; J3010; J2370; J2001 ×2; J2704; J1170; J1644

== ENCOUNTER → 2023-08-16 | Outpatient (CLI) | payer OTHER | END | disposition home or self-care (01) | LOC: LABWHC1 07:54 | PROVIDERS: ATTEND Internal Medicine Endocrinology, Diabetes & Metabolism | DX: E03.8 Other specified hypothyroidism (principal) | CPT/HCPCS: 36415; 84443 ==

== ENCOUNTER → 2023-11-18 | Outpatient (CLI) | payer OTHER ==
--- NOTE | 2023-11-18 16:05 | CT ---
EXAMINATION TYPE: CT chest w con DATE OF EXAM: 11/18/2023 COMPARISON: None HISTORY: Cough x [address] DLP: 371.0 mGycm Automated exposure control for dose reduction was used. CONTRAST: CT scan of the chest is performed with IV Contrast, patient injected with 100 cc mL of Isovue 300. FINDINGS: LUNGS: The lungs are grossly clear, there is no concerning parenchymal mass or nodule identified. T here is no pleural effusion or pneumothorax seen. The tracheobronchial tree is patent. Mild subpleur al fibrosis left upper lobe likely related prior radiation therapy. MEDIASTINUM: There are no greater than 1 cm hilar or mediastinal lymph nodes. No pericardial effusi on is seen. Thoracic aorta is of normal caliber. The heart is not enlarged. UPPER ABDOMEN: Mild hepatic steatosis. OTHER: Lumpectomy site left breast. IMPRESSION: 1. Mild subpleural fibrosis left upper lobe. No Evidence of metastatic disease at this time to the est.
== END | disposition home or self-care (01) ==
LOC: RADCTMAIN 15:17
PROVIDERS: ATTEND Internal Medicine
DX: J84.10 Pulmonary fibrosis, unspecified (principal); C50.412 Malignant neoplasm of upper-outer quadrant of left female breast; R05.9 Cough, unspecified; E03.9 Hypothyroidism, unspecified; E78.5 Hyperlipidemia, unspecified; M85.9 Disorder of bone density and structure, unspecified; I10 Essential (primary) hypertension; Z71.3 Dietary counseling and surveillance
CPT/HCPCS: 71260; Q9967

== ENCOUNTER → 2024-01-02 | Outpatient (CLI) | payer OTHER ==
--- NOTE | 2024-01-02 12:58 | MM ---
Reason for Exam: Follow-up at short interval from prior study. Last mammogram was performed 1 year(s) and 2 month(s) ago. Patient History: Menarche at age 16. First Full-Term at age 25. Postmenopausal. Patient has history of breast feeding. Breast cancer, left, age 57. Breast cancer, left, age 57. Hormonal Contraceptives for 5 years from age 19 until age 24. 12/31/2022, Lumpectomy on the Left side. 12/31/2022, Malignant MG pre op needle loc LT on the left side. 12/05/2022, Benign US biopsy breast VAD LT on the left side. 11/12/2022, Malignant MG stereo VAD BX LT on the left side. Bilateral Cyst Aspiration. 2002, Excisional Biopsy on the Right side. Maternal grandmother had breast cancer, age 50. Maternal aunt had breast cancer, age 40. Mother had breast cancer, age 60. Tissue Density: There are scattered areas of fibroglandular density. Findings: Analyzed By CAD. Posttreatment changes left breast. Surgical clips in the left breast. Consultations present bilaterally. Biopsy clip left breast. No new suspicious masses, calcifications or distortions. Overall Assessment: Benign, BI-RAD 2 Management: Screening Mammogram of both breasts in 1 year. Results were given to the patient verbally at the time of exam. Patient should continue monthly self-breast exams. A clinical breast exam by your physician is recommended on an annual basis. This exam should not preclude additional follow-up of suspicious palpable abnormalities. Note on Nancy scores and lifetime risk: 1. A Nancy score greater than 3% is considered moderate risk. If this is the case, consider specialist referral to assess eligibility for a risk reducing agent. 2. If overall lifetime risk for the development of breast cancer is 20% or higher, the patient may qualify for future screening with alternating mammogram and breast MRI. Electronically signed and approved by: Black Camarillo DO
== END | disposition home or self-care (01) ==
LOC: RADMAMWWP 12:16
PROVIDERS: ATTEND Surgery
DX: R92.323 Mammographic fibroglandular density, bilateral breasts (principal); Z85.3 Personal history of malignant neoplasm of breast; Z80.3 Family history of malignant neoplasm of breast; Z78.0 Asymptomatic menopausal state
CPT/HCPCS: 77062; 77066

== ENCOUNTER → 2024-02-12 | Outpatient (CLI) | payer OTHER | END | disposition home or self-care (01) | LOC: LABWHC1 09:17 | PROVIDERS: ATTEND Internal Medicine Endocrinology, Diabetes & Metabolism | DX: E03.8 Other specified hypothyroidism (principal) | CPT/HCPCS: 36415; 84443 ==

== ENCOUNTER → 2024-07-13 | Outpatient (CLI) | payer OTHER ==
[2024-07-13 14:04] LABS: T4, Free (Free Thyroxine) 1.49 ng/dL (0.80-1.80)
== END | disposition home or self-care (01) ==
LOC: LABWHC1 08:25
PROVIDERS: ATTEND Internal Medicine Endocrinology, Diabetes & Metabolism
DX: E03.8 Other specified hypothyroidism (principal)
CPT/HCPCS: 36415; 84439; 84443

== ENCOUNTER → 2024-08-17 | Outpatient (CLI) | payer OTHER ==
[2024-08-17 10:45] LABS: Basophils # (A) 0.03 X 10*3/uL (0.00-0.10); Basophils % (A) 0.6 %; Eosinophils # (A) 0.09 X 10*3/uL (0.04-0.35); Eosinophils % (A) 1.7 %; HCT 42.5 % (37.2-46.3); HGB 14.5 g/dL (12.0-15.0); Lymphocytes # (A) 1.36 X 10*3/uL (0.90-5.00); Lymphocytes % (A) 25.4 %; MCH 31.5 pg (27.0-32.0); MCHC 34.1 g/dL (32.0-37.0); MCV 92.4 FL (80.0-97.0); Mean Platelet Volume 10.8 FL (9.5-12.2); Monocytes # (A) 0.35 X 10*3/uL (0.20-1.00); Monocytes % (A) 6.5 %; NRBC Per 100 WBC 0 X 10*3/uL (0.00-0.01); Neutrophils # (A) 3.51 X 10*3/uL (1.80-7.70); Neutrophils % (A) 65.6 %; Platelet Count 226 X 10*3/uL (140-440); RDW 12.3 % (11.5-14.5); WBC 5.35 X 10*3/uL (4.50-10.00)
[2024-08-17 11:29] LABS: % Iron Saturation 31.65 (12.00-45.00); ALT 49 U/L (8-44); AST 27 U/L (13-35); Albumin 4.4 g/dL (3.8-4.9); Albumin/Globulin Ratio 2.32 Ratio (1.60-3.17); Alkaline Phosphatase 90 U/L (41-126); BUN/Creat Ratio 11.88 Ratio (12.00-20.00); Blood Urea Nitrogen 9.5 mg/dL (9.0-27.0); Calcium 9.4 mg/dL (8.7-10.3); Carbon Dioxide 24.9 mmol/L (21.6-31.8); Chloride 106 mmol/L (96-109); Globulin 1.9 g/dL (1.6-3.3); Glucose 121 mg/dL (70-110); Iron 113 UG/DL (50-170); Potassium 4.4 mmol/L (3.5-5.5); Sodium 141 mmol/L (135-145); T4, Free (Free Thyroxine) 1.44 ng/dL (0.80-1.80); Total Bilirubin 0.5 mg/dL (0.3-1.2); Total Iron Binding Capacity 357 UG/DL (228-460); Total Protein 6.3 g/dL (6.2-8.2)
[2024-08-17 13:29] LABS: Follicle Stimulating Hormone 72.8 mIU/mL; Luteinizing Hormone 42.6 mIU/mL
== END | disposition home or self-care (01) ==
LOC: LABWHC1 07:36
PROVIDERS: ATTEND Family Medicine
DX: Z00.00 Encounter for general adult medical examination without abnormal findings (principal); E03.9 Hypothyroidism, unspecified; L65.9 Nonscarring hair loss, unspecified
CPT/HCPCS: 36415; 80053; 80061; 82306; 82533; 82607; 82671; 83001; 83002; 83540; 83550; 84146; 84403; 84439; 84443; 84481; 85025

== ENCOUNTER 2024-10-22 11:57 | Day surgery (SDC) | payer OTHER ==
[2024-10-16 12:39] VITALS: BMI 30.7
[~2024-10-22 11:57] MED LIST changes: -ACETAMINOPHEN TAB 500 MG TAB PO PRN; -HEPARIN SODIUM,PORCINE/PF 5,000 UNIT/0.5 ML SYRINGE SQ PRN; +LACTATED RINGERS 1,000 ML IV SCH; +LIDOCAINE 1% (10MG/ML) FOR IV START INTRADERMA PRN; -Pre Op ABX Message 1 EACH MISC MISCELLANE ONE
[2024-10-22] MEDS: SODIUM CHLORIDE 0.9% 1,000 ML IV ONE (12:20)
[2024-10-22 12:22] VITALS: TEMP 97.1
[2024-10-22] MEDS ORDERED: PROPOFOL 10 MG/ML 20 ML VIAL IV ONE (13:00)
--- NOTE | 2024-10-22 13:19 | P.PCN ---
Date of Procedure: 10/22/24 Procedure(s) Performed: PREOPERATIVE DIAGNOSIS: Colon cancer screening POSTOPERATIVE DIAGNOSIS: Diverticulosis, descending colon polyp PROCEDURE: Colonoscopy with cold snare ANESTHESIA: MAC SURGEON: David Hopper M.D. SPECIMENS: Polyp ENDOSCOPIC PROCEDURE: The patient was placed on the endoscopy table in the left decubitus position. The Olympus colonoscope was inserted into the anus and passed under direct visualization to the base of the cecum. The appendiceal orifice was visualized. From that point the scope was slowly withdrawn inspecting all surfaces carefully. There were no neoplastic inflammatory or polypoid lesions throughout the cecum, ascending, or transverse colon. In the descending colon a very small polyp was removed using the cold snare technique. The remainder of the descending sigmoid and rectum was normal. There was mild left-sided diverticulosis. Digital rectal examination was normal. The patient was taken to the recovery room in stable condition per anesthesia guidelines. RECOMMENDATIONS: Await biopsy results. Will contact patient with timing of the next colonoscopy.
[2024-10-22 13:39] VITALS: RESP 16
[2024-10-22 14:00] VITALS: BP 135/82; PULSE 62
== END 2024-10-22 14:21 | disposition home or self-care (01) ==
LOC: ORWHC2ENDO 11:57
PROVIDERS: ATTEND Surgery
DX: Z12.11 Encounter for screening for malignant neoplasm of colon (principal); K63.5 Polyp of colon; K57.30 Diverticulosis of large intestine without perforation or abscess without bleeding; I10 Essential (primary) hypertension; E78.5 Hyperlipidemia, unspecified; E07.9 Disorder of thyroid, unspecified; Z79.890 Hormone replacement therapy; Z79.899 Other long term (current) drug therapy; Z85.3 Personal history of malignant neoplasm of breast; Z88.2 Allergy status to sulfonamides; Z90.49 Acquired absence of other specified parts of digestive tract
CPT/HCPCS: 88305; 45385; J2704

== ENCOUNTER → 2024-12-23 | Outpatient (CLI) | payer OTHER ==
[2024-12-23 10:49] LABS: ALT 64 U/L (8-44); AST 31 U/L (13-35); Albumin 4.4 g/dL (3.8-4.9); Alkaline Phosphatase 102 U/L (41-126); BUN/Creat Ratio 14.57 Ratio (12.00-20.00); Blood Urea Nitrogen 10.2 mg/dL (9.0-27.0); Calcium 9.7 mg/dL (8.7-10.3); Carbon Dioxide 25.7 mmol/L (21.6-31.8); Chloride 105 mmol/L (96-109); Globulin 2.2 g/dL (1.6-3.3); Glucose 141 mg/dL (70-110); Potassium 4.3 mmol/L (3.5-5.5); Sodium 143 mmol/L (135-145); Total Bilirubin 0.4 mg/dL (0.3-1.2); Total Protein 6.6 g/dL (6.2-8.2)
== END | disposition home or self-care (01) ==
LOC: LABWHC1 08:00
PROVIDERS: ATTEND Internal Medicine Endocrinology, Diabetes & Metabolism
DX: E03.8 Other specified hypothyroidism (principal); R73.09 Other abnormal glucose
CPT/HCPCS: 36415; 80053; 83036; 84443

== ENCOUNTER → 2025-01-04 | Outpatient (CLI) | payer OTHER ==
--- NOTE | 2025-01-04 08:41 | MM ---
Reason for Exam: Hx of breast cancer, conservation therapy. Last screening mammogram was performed 12 month(s) ago. Patient History: Menarche at age 16. First Full-Term at age 25. Postmenopausal. Patient has history of breast feeding. Breast cancer, left, age 57. Breast cancer, left, age 57. Hormonal Contraceptives for 5 years from age 19 until age 24. 12/31/2022, Lumpectomy on the Left side. 12/31/2022, Malignant MG pre op needle loc LT on the left side. 12/05/2022, Benign US biopsy breast VAD LT on the left side. 11/12/2022, Malignant MG stereo VAD BX LT on the left side. Bilateral Cyst Aspiration. 2002, Excisional Biopsy on the Right side. Maternal grandmother had breast cancer, age 50. Maternal aunt had breast cancer, age 40. Mother had breast cancer, age 60. Prior Study Comparison: 11/10/2020 Bilateral Screening Mammogram, [facility]. 10/18/2022 Bilateral MG screening mammo w CAD, [facility]. 10/25/2022 Left MG work up mamm w CAD LT, [facility]. 10/25/2022 Left US breast workup LT, [facility]. 12/05/2022 Left MG diagnostic mammo LT wo CAD., [facility]. 01/02/2024 Bilateral MG 3D diag mammo w/cad NILSA, [facility]. Tissue Density: The breasts are heterogeneously dense, which may obscure small masses. Findings: Analyzed By CAD. Architectural distortion in the left breast compatible with previous biopsy. Stable loosely grouped calcifications in the upper lower margin the right breast. Additional magnification views demonstrate no clustered calcifications. Additional benign-appearing calcifications. Overall Assessment: Incomplete: need additional imaging evaluation, BI-RAD 0 Management: Diagnostic Mammogram of the right breast. . Results were given to the patient verbally at the time of exam. Patient should continue monthly self-breast exams. A clinical breast exam by your physician is recommended on an annual basis. This exam should not preclude additional follow-up of suspicious palpable abnormalities. Note on Nancy scores and lifetime risk: 1. A Nancy score greater than 3% is considered moderate risk. If this is the case, consider specialist referral to assess eligibility for a risk reducing agent. 2. If overall lifetime risk for the development of breast cancer is 20% or higher, the patient may qualify for future screening with alternating mammogram and breast MRI. [facility], , 01/04/2025 8:38 AM. Electronically signed and approved by: Carlos Linn M.D. Radiologis
== END | disposition home or self-care (01) ==
LOC: RADMAMWWP 07:50
PROVIDERS: ATTEND Surgery
DX: R92.8 Other abnormal and inconclusive findings on diagnostic imaging of breast (principal); R92.333 Mammographic heterogeneous density, bilateral breasts; Z78.0 Asymptomatic menopausal state; Z85.3 Personal history of malignant neoplasm of breast; Z80.3 Family history of malignant neoplasm of breast
CPT/HCPCS: 77062; 77066

== ENCOUNTER → 2025-03-29 | Outpatient (CLI) | payer OTHER ==
[2025-03-29 10:30] LABS: Chol/HDL Ratio 3.31 Ratio
[2025-03-29 11:44] LABS: ALT 47 U/L (8-44); AST 35 U/L (13-35); Albumin 4.3 g/dL (3.8-4.9); Albumin/Globulin Ratio 1.79 Ratio (1.60-3.17); Alkaline Phosphatase 92 U/L (41-126); Blood Urea Nitrogen 11.9 mg/dL (9.0-27.0); Calcium 9.4 mg/dL (8.7-10.3); Carbon Dioxide 23.7 mmol/L (21.6-31.8); Chloride 106 mmol/L (96-109); Globulin 2.4 g/dL (1.6-3.3); Glucose 137 mg/dL (70-110); Potassium 4.8 mmol/L (3.5-5.5); Sodium 140 mmol/L (135-145); Total Bilirubin 0.2 mg/dL (0.3-1.2); Total Protein 6.7 g/dL (6.2-8.2)
[2025-03-29 18:49] LABS: Microalbumin Creatinine Ratio <15 mg/g Cr (0-30)
== END | disposition home or self-care (01) ==
LOC: LABWHC1 07:04
PROVIDERS: ATTEND Internal Medicine Endocrinology, Diabetes & Metabolism
DX: E03.8 Other specified hypothyroidism (principal); E11.9 Type 2 diabetes mellitus without complications
CPT/HCPCS: 36415; 80053; 80061; 82043; 82570; 83036; 84443